=== PATIENT | female | born 1970 | race Caucasian/White ===

== ENCOUNTER 2022-02-27 15:22 | Emergency (ER) | payer OTHER ==
[2022-02-27 15:40] VITALS: BP 161/93; PULSE 109; RESP 16; TEMP 98.3; BMI 29.8
[2022-02-27] MEDS ORDERED: KETOROLAC TROMETHAMINE 30 MG/1 ML VIAL IM ONE (16:55)
[2022-02-27] MEDS ORDERED: KETOROLAC TROMETHAMINE 30 MG/1 ML VIAL ONE (16:57)
== END 2022-02-27 18:46 | disposition home or self-care (01) ==
LOC: JERFT 15:22
PROC: 3E0233Z Introduction of Anti-inflammatory into Muscle, Percutaneous Approach (ICD-10-PCS; principal; 2022-02-27)
DX: M25.562 Pain in left knee (principal)
CPT/HCPCS: 73562-TC-LT-FY; 99284-25